=== PATIENT | female | born 1965 | race Caucasian/White ===

== ENCOUNTER → 2019-01-02 | Outpatient (CLI) | payer OTHER ==
[~2019-01-02] MED LIST: COMBIRESP IH; LEVAQUIN 750MG750 M1 PO; PREDNISONE10 MG PO; TESSALON PERLE200 MG PO; TUSS PO
== END ==
LOC: COL.RAD 12-27 13:15
DX: M48.02 Spinal stenosis, cervical region (principal); M47.812 Spondylosis without myelopathy or radiculopathy, cervical region

== ENCOUNTER → 2021-06-10 | Outpatient (CLI) | payer OTHER | LOC: DIA.ED 09:23 | DX: E11.65 Type 2 diabetes mellitus with hyperglycemia (principal); Z79.84 Long term (current) use of oral hypoglycemic drugs | CPT/HCPCS: G0108 ==